=== PATIENT | male | born 1955 | race Caucasian/White ===

== ENCOUNTER 2017-01-12 11:55 | Emergency (ER) | payer SELFPAY ==
[2017-01-12] MEDS ORDERED: Aspirin Low Dose CHEW TAB* 81 MG PO ONE (12:32)
[2017-01-12 12:47] LABS: Hematocrit 43 % (42-52); Hemoglobin 14.3 g/dl (14.0-18.0); Mean Corpuscular HGB Conc 33 g/dl (31-36); Mean Corpuscular Hemoglobin 32 pg (27-31); Mean Corpuscular Volume 96 fL (80-94); Mean Platelet Volume 10 um3 (7.4-10.4); Red Blood Count 4.45 10^6/ul (4.0-5.4); Red Cell Distribution Width 13 % (10.5-15); White Blood Count 6.9 10^3/ul (3.5-10.8)
[2017-01-12 12:59] LABS: Albumin 4.3 g/dL (3.2-5.2); BUN/Creatinine Ratio 21.1 (8-20); Calcium 9.4 mg/dL (8.6-10.3); EGFR African American 144.6 (>60); EGFR Non-African American 112.4 (>60); Globulin 2.3 g/dL (2-4); Potassium 4.1 mmol/L (3.5-5.0); Total Bilirubin 0.9 mg/dL (0.2-1.0); Total Protein 6.6 g/dL (6.4-8.9)
--- NOTE | 2017-01-12 13:10 | RAD ---
INDICATION: Chest pain. COMPARISON: There are no prior studies available for comparison. TECHNIQUE: Dual-energy PA and lateral views of the chest were obtained. FINDINGS: The heart is within normal limits in size. Mediastinal and hilar contours appear within normal limits. The lungs are clear. No pleural effusion is present. IMPRESSION: NO EVIDENCE FOR ACTIVE CARDIOPULMONARY DISEASE.
[2017-01-12 14:55] VITALS: BP 137/75
--- NOTE | 2017-01-16 15:29 | ED ---
Chad Stephen SooYoung, scribed for Leonidas Holliday MD on 01/12/17 at 1216 . HPI Chest Pain - HPI Summary HPI Summary: A 61 y/o M presents to ED with c/o constant, worse L-sided CP since 0400 this AM. Pt states he's been having intermittent L-sided CP for past two weeks. Associated sx: SOB since onset, constipation for past month. Denies: urinary changes. Pain described as a "heavy" discomfort. Radiating to back which resolved spontaneously. Aggravating factors: at rest, sitting, bending over. Pt has been to [facility] ED two times over past two weeks for CP (EKG, labs , CXR done). PMHx: lyme dz a few years ago. - History of Current Complaint Chief Complaint: EDChestPainROMI Time Seen by Provider: 01/12/17 12:06 Hx Obtained From: Patient Onset/Duration: Started Hours Ago, Still Present Timing: Constant Initial Severity: Moderate Current Severity: Moderate Pain Intensity: 4 Pain Scale Used: 0-10 Numeric Chest Pain Location: Left Lateral Chest Pain Radiates: Yes Chest Pain Radiates To:: Back Character: Heaviness Aggravating Factor(s): Position, Rest Associated Signs and Symptoms: Positive: Shortness of Breath, Other: - pos: constipation; neg: urinary changes - Allergy/Home Medications Allergies/Adverse Reactions: Allergies Allergy/AdvReac Type Severity Reaction Status Date / Time No Known Allergies Allergy Verified 01/12/17 12:51 PMH/Surg Hx/FS Hx/Imm Hx Previously Healthy: No - Lyme Dz Infectious Disease History: Denies: Traveled Outside the [place] in Last 30 Days - Social History Occupation: Unemployed - OTHER Lives: With Family Hx Tobacco Use: Yes Review of Systems Positive: Chest Pain Positive: Shortness Of Breath Positive: other - pos: constipation. Negative: dysuria, hematuria All Other Systems Reviewed And Are Negative: Yes Physical Exam Triage Information Reviewed: Yes Vital Signs On Initial Exam: Initial Vitals Temp Pulse Resp BP Pulse Ox 97.6 F 61 18 148/77 99 01/12/17 11:58 01/12/17 11:58 01/12/17 11:58 01/12/17 11:58 01/12/17 11:58 Vital Signs Reviewed: Yes Appearance: Positive: Well-Appearing, No Pain Distress Skin: Positive: Warm, Skin Color Reflects Adequate Perfusion, Dry Head/Face: Positive: Normal Head/Face Inspection Eyes: Positive: Normal ENT: Positive: Normal ENT inspection Neck: Positive: Supple, Nontender Respiratory/Lung Sounds: Positive: Clear to Auscultation, Breath Sounds Present Cardiovascular: Positive: RRR Musculoskeletal: Positive: Normal Neurological: Positive: Normal Psychiatric: Positive: Normal, Affect/Mood Appropriate Diagnostics - Vital Signs Vital Signs Temp Pulse Resp BP Pulse Ox 01/12/17 11:58 97.6 F 61 18 148/77 99 - Laboratory Lab Results: Lab Results 01/12/17 01/12/17 01/12/17 Range/Units 12:20 12:20 12:20 WBC 6.9 (3.5-10.8) 10^3/ul RBC 4.45 (4.0-5.4) 10^6/ul Hgb 14.3 (14.0-18.0) g/dl Hct 43 (42-52) % MCV 96 H (80-94) fL MCH 32 H (27-31) pg MCHC 33 (31-36) g/dl RDW 13 (10.5-15) % Plt Count 173 (150-450) 10^3/ul MPV 10 (7.4-10.4) um3 Neut % (Auto) 55.1 (38-83) % Lymph % (Auto) 33.6 (25-47) % [place] % (Auto) 7.2 (1-9) % Eos % (Auto) 2.8 (0-6) % Baso % (Auto) 1.3 (0-2) % Absolute Neuts (auto) 3.8 (1.5-7.7) 10^3/ul Absolute Lymphs (auto) 2.3 (1.0-4.8) 10^3/ul Absolute Monos (auto) 0.5 (0-0.8) 10^3/ul Absolute Eos (auto) 0.2 (0-0.6) 10^3/ul Absolute Basos (auto) 0.1 (0-0.2) 10^3/ul Absolute Nucleated RBC 0.01 10^3/ul Nucleated RBC % 0.1 Sodium 138 (133-145) mmol/L Potassium 4.1 (3.5-5.0) mmol/L Chloride 107 (101-111) mmol/L Carbon Dioxide 24 (22-32) mmol/L Anion Gap 7 (2-11) mmol/L BUN 15 (6-24) mg/dL Creatinine 0.71 (0.67-1.17) mg/dL Est GFR ( Amer) 144.6 (>60) Est GFR (Non-Af Amer) 112.4 (>60) BUN/Creatinine Ratio 21.1 H (8-20) Glucose 102 H (70-100) mg/dL Lactic Acid 0.8 (0.5-2.0) mmol/L Calcium 9.4 (8.6-10.3) mg/dL Total Bilirubin 0.90 (0.2-1.0) mg/dL AST 17 (13-39) U/L ALT 7 (7-52) U/L Alkaline Phosphatase 54 (34-104) U/L Troponin I 0.00 (<0.04) ng/mL Total Protein 6.6 (6.4-8.9) g/dL Albumin 4.3 (3.2-5.2) g/dL Globulin 2.3 (2-4) g/dL Albumin/Globulin Ratio 1.9 (1-3) Result Diagrams: 01/12/17 12:20 01/12/17 12:20 Lab Statement: Any lab studies that have been ordered have been reviewed, and results considered in the medical decision making process. - Radiology CXR Xray Interpretation: No Acute Changes - IMPRESSION: No evidence for active cardiopulmonary dz Radiology Interpretation Completed By: Radiologist - EKG 1 EKG Rhythm: Sinus Bradycardia ST Segment: Non-Specific Chest Pain Course/Dx - Course Course Of Treatment: Mr. Ruff has had CP for seveeral hours today and his W/U is normal including an initial trop. He has been to [place] twice for this in the last two weeks. I recommended a delayed troponin but he was unwilling to stay for that. - Diagnoses Provider Diagnoses: Chest pain Discharge - Discharge Plan Condition: Stable Disposition: HOME Patient Education Materials: Chest Pain (ED) Referrals: Non Staff,Doctor [Primary Care Provider] - Additional Instructions: Follow up with [facility] Cardiology tomorrow. Please return to ED if you experience new or worsening symptoms. The documentation as recorded by the scribe, VanDeMark,SooYoung accurately reflects the service I personally performed and the decisions made by me, Leonidas Holliday MD.
== END 2017-01-12 14:55 | disposition home or self-care (01) ==
LOC: ED 11:55
DX: R07.9 Chest pain, unspecified (principal); R06.02 Shortness of breath; K59.00 Constipation, unspecified
CPT/HCPCS: 36415; 71020; 80053; 83605; 84484; 85025; 93005; 99282